=== PATIENT | female | born 2000 | race Hispanic/Latino ===

== ENCOUNTER 2019-09-14 05:59 | Emergency (ER) | payer SELFPAY ==
[~2019-09-14] VITALS: Ht 152.4 cm; Wt 77.1 kg
[2019-09-14] MEDS ORDERED: LIDOCAINE HCL 1% LOCAL INJ 20 ML VIAL INJ ONE (06:15)
[2019-09-14] MEDS ORDERED: NEOMYCIN/POLYMYX/BACITR OINT 0.9 GM PKT ONE (06:35)
--- NOTE | 2019-09-14 06:37 | Emergency Department Note ---
History of Present Illnes History of Present Illness Chief Complaint: Laceration History of Present Illness This is a 19 year old female PRESENTS TO ED WITH APPROX 1.5 CM LACERATION TO LEFT PALM, MINIMAL AMPOUNT OF BLEEDING NOTED, EDGES WELL APPROXIMATED; PT WAS AT WORK AND STATES, "I CUT MY HAND WITH A LINING VAMPER.". Historian: Patient Arrival Mode: Car Onset (how long ago): minute(s) (20) Location: LEFT HAND Quality: LACERATION Radiation: Reports non-radiation Severity: mild Onset quality: sudden Duration (how long): hour(s) (20 MINUTES) Timing of current episode: constant Progression: unchanged Chronicity: new Context: Reports trauma/injury (CUT LEFT HAND WITH A LINING VAMPER) Relieving factors: none Exacerbating factors: movement Associated symptoms: Reports denies other symptoms Past Medical/Family History Physician Review I have reviewed the patient's past medical and family history. Any updates have been documented here. Past Medical History Recent Fever: No Clinical Suspicion of Infectio: No New/Unexplained Change in Ment: No Past Medical History: None Past Surgical History: None Social History Smoking Cessation: Never Smoker Counseling Performed: No Alcohol Use: None Any Illegal Drug Use: No TB Exposure/Symptoms: No Physically hurt or threatened: No Family History Family history of heart diseas: No Other Last Tetanus: UTD Any Pre-Existing Lines (PICC,: No Is patient up to date on immun: Yes Last Flu: DENIES Last Pneumovax: DENIES Review of Systems Review of Systems Constitutional: Reports no symptoms EENTM: Reports no symptoms Cardiovascular: Reports no symptoms Respiratory: Reports no symptoms Gastrointestinal: Reports no symptoms Genitourinary: Reports no symptoms Musculoskeletal: Reports as per HPI Integumentary: Reports no symptoms Neurological: Reports no symptoms Psychological: Reports no symptoms Endocrine: Reports no symptoms Hematological/Lymphatic: Reports no symptoms Physical Exam Related Data Allergies: Coded Allergies: No Known Allergies (Unverified , 09/14/19) Triage Vital Signs Vital Signs Date Time Temp Pulse Resp B/P (MAP) Pulse Ox O2 Delivery O2 Flow Rate FiO2 09/14/19 06:04 99.2 87 17 142/96 100 Physical Exam CONSTITUTIONAL Constitutional: Present well-developed, Present well-nourished HENT HENT: Present normocephalic, Present atraumatic, Present oropharynx clear/moist, Present nose normal HENT L/R: Present left ext ear normal, Present right ext ear normal EYES Eyes: Reports PERRL, Reports conjunctivae normal NECK Neck: Present ROM normal PULMONARY Pulmonary: Present effort normal, Present breath sounds normal CARDIOVASCULAR Cardiovascular: Present regular rhythm, Present heart sounds normal, Present capillary refill normal, Present normal rate GASTROINTESTINAL Abdominal: Present soft, Present nontender, Present bowel sounds normal GENITOURINARY Genitourinary: Present exam deferred SKIN Skin: Present warm, Present dry MUSCULOSKELETAL Musculoskeletal: Present ROM normal, Present other (1.2 CM LACERATION PALM LEFT HAND, [place] INTACT) NEUROLOGICAL Neurological: Present alert, Present oriented x 3, Present no gross motor or sensory deficits PSYCHOLOGICAL Psychological: Present mood/affect normal, Present judgement normal Procedures Laceration Laceration: Laceration 1 Site: hand (LEFT PALM) Side: left Size (cm): 1.2 Description: linear Depth: simple, single layer Local anesthesia: lidocaine 1% Pre-repair: wound exposed, irrigated extensively, deep structures intact Skin layer closed with: other (PROLENE) Size (cm): 4-0 Number of sutures: 4 Assessment & Plan Medical Decision Making MDM PT WITH LACERATION TO PALM LEFT HAND, LACERATION REPAIRED. Assessment & Plan Final Impression: (1) Laceration of hand, left Depart Disposition: HOME, SELF-CARE Last Vital Signs Date Time Temp Pulse Resp B/P (MAP) Pulse Ox O2 Delivery O2 Flow Rate FiO2 09/14/19 06:04 99.2 87 17 142/96 100 Medications in the ED Lidocaine HCl ONCE ONCE INJ Last administered on 09/14/19at 06:17; Admin Dose 1 ML; Start 09/14/19 at 06:15; Stop 09/14/19 at 06:25; Status DC Neomycin/ Polymyxin/ Bacitracin 0.9 gm STK-MED ONCE .ROUTE ; Start 09/14/19 at 06:35; Stop 09/14/19 at 06:29; Status DC TERRANCE MOONEY MD Sep 14, 2019 06:37
[2019-09-14] MEDS ORDERED: NEOMYCIN/POLYMYX/BACITR OINT 0.9 GM PKT TOP ONE (06:45)
== END 2019-09-14 06:40 | disposition home or self-care (01) ==
LOC: ER 05:59
DX: S61.412A Laceration without foreign body of left hand, initial encounter (principal); W45.8XXA Other foreign body or object entering through skin, initial encounter; Y99.0 Civilian activity done for income or pay
CPT/HCPCS: 99283; J2001

== ENCOUNTER 2024-07-22 01:00 | Emergency (ER) | payer SELFPAY ==
[~2024-07-22] VITALS: Ht 152.4 cm; Wt 95.3 kg
[2024-07-22] MEDS: TRAMADOL HCL 50 MG TAB PO STA (01:52)
[2024-07-22] MEDS ORDERED: KETOROLAC TROME10 MG PO (02:20)
[2024-07-22 03:00] VITALS: PULSE 76; RESP 18; TEMP 98.6; O2SAT 98
== END 2024-07-22 03:00 | disposition home or self-care (01) ==
LOC: ER 01:13
DX: M25.561 Pain in right knee (principal); W01.0XXA Fall on same level from slipping, tripping and stumbling without subsequent striking against object, initial encounter; Y93.41 Activity, dancing; Y92.89 Other specified places as the place of occurrence of the external cause
CPT/HCPCS: 99284